=== PATIENT | male | born 1975 | race Caucasian/White ===

== ENCOUNTER 2016-12-11 15:46 | Emergency (ER) | payer BC ==
[2016-12-11 16:13] VITALS: BP 104/68
--- NOTE | 2016-12-11 16:24 | EDM.PDOC ---
ED HPI GENERAL MEDICAL PROBLEM - General Chief Complaint: IV Access Related Stated Complaint: FISTULA PROBLEMS; CATH BLEEDING Time Seen by Provider: 12/11/16 16:23 Source of Information: Reports: Patient, Family (spouse) History Limitations: Reports: No Limitations - History of Present Illness INITIAL COMMENTS - FREE TEXT/NARRATIVE: 41-year-old male who has a Broviac catheter in place right upper anterior chest for dialysis presents to the ED due to continuous oozing from the wound site. Soaked with blood yesterday and again today it is soaked with blood. He has received dialysis daily for the last 3 consecutive days in [place] and is on his way back home. He had a fistula formation in his left forearm which will be several weeks before it can be utilized for dialysis. Onset: Gradual (it's been oozing since the Broviac catheter was placed.) Onset Date: 12/08/16 Duration: Day(s): Location: Reports: Chest (right upper anterior chest.) Quality: Reports: Other (continued oozing and soaking of his dressing surrounding the Broviac catheter insertion sites.) Severity: Mild Improves with: Reports: None Worsens with: Reports: None Context: Reports: Other (w.). 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 Broviac catheter laced right upper anterior chest. AV fistula created left forearm - Past Surgical History Male Surgical History: Reports: Lithotripsy ([facility]) Social & Family History - Family History Family Medical History: Noncontributory - Tobacco Use Smoking Status *Q: Never Smoker Second Hand Smoke Exposure: No - Alcohol Use Days Per Week of Alcohol Use: 0 - Recreational Drug Use Recreational Drug Use: No - Living Situation & Occupation Living situation: Reports: Occupation: Disabled ED ROS GENERAL - Review of Systems Review Of Systems: See Below Constitutional: Reports: Fatigue, Decreased Appetite, Weight Loss. Denies: Fever, Chills, Malaise, Weakness HEENT: Reports: No Symptoms Respiratory: Reports: No Symptoms Cardiovascular: Reports: No Symptoms Endocrine: Reports: Fatigue GI/Abdominal: Reports: Nausea (intermittently.) : Reports: Other (renal failure requiring recurrence of dialysis. Still making very small quantity of urine daily.) Musculoskeletal: Reports: No Symptoms Skin: Reports: No Symptoms Neurological: Reports: No Symptoms Psychiatric: Reports: No Symptoms Hematologic/Lymphatic: Reports: No Symptoms Immunologic: Reports: No Symptoms ED EXAM, GENERAL - Physical Exam Exam: See Below Exam Limited By: No Limitations General Appearance: Alert, WD/WN, No Apparent Distress Respiratory/Chest: Other (ablation was limited to the Broviac catheter right upper anterior chest. The MediPort dressing was removed from around the catheter with sterile gloves and mask in place. There is oozing coming from the inferior portion of the subclavian line but there was nothing amenable to cauterization. His wounds areas was simply cleansed of blood and new dressings were applied.) Course - Vital Signs Last Recorded V/S: Last Vital Signs Temp 36.8 C 12/11/16 16:06 Pulse 104 H 12/11/16 16:06 Resp BP 104/68 12/11/16 16:06 Pulse Ox 99 12/11/16 16:06 - Radiology Interpretation Free Text/Narrative:: evaluation in the emergency him today regarding soaked dressing right upper anterior chest from recent Broviac catheter insertion site being used for dialysis the last 3 days. Catheter was placed on December 08. He had of the dressing change yesterday because of soaked with blood as well. Once again I removed the dressing it's a meat poor dressing with bacterial Peter patch under the subclavian line at on the skin. This is completely saturated in blood. It was removed and the wound was cleansed. I tried to explore the surrounding catheter site but not able to identify any source of bleeding that was amenable to cauterization with silver nitrate. It is oozing and over time it should stop on its own. Plan wound cleansed and new dressings to be applied. Follow-up with nephrology as planned Departure - Departure Time of Disposition: 17:04 Disposition: Home, Self-Care 01 Condition: Fair Clinical Impression: Broviac catheter in place, End stage kidney disease - Discharge Information Instructions: End-Stage Kidney Disease Referrals: Krishan Phillips MD [Primary Care Provider] - Forms: ED Department Discharge Additional Instructions: evaluation in the emergency him today in regards to persistent oozing from Broviac catheter placement right upper anterior chest for dialysis. It is been used last 3 days for dialysis runs. It continues to ooze from the catheter placement site and there was no area that was amenable to cauterization. Therefore the wound was simply cleansed and then redressed with antibiotic and Mepore dressing. He will have to return to the hospital down an as-needed basis for dressing change if it continues to become soaked with blood. Eventually the bleeding should stop on its own. There is no signs of any infection at the wound site.
== END 2016-12-11 17:15 | disposition home or self-care (01) ==
LOC: JD.ED 15:46
DX: Z45.2 Encounter for adjustment and management of vascular access device (principal); N18.6 End stage renal disease; Z88.5 Allergy status to narcotic agent
CPT/HCPCS: 99283